=== PATIENT | female | born 1955 | race Caucasian/White ===

== ENCOUNTER 2016-09-26 09:11 | Day surgery (SDC) | payer OTHER ==
--- NOTE | 2016-09-25 19:23 | HISTORY AND PHYSICAL ---
ADMITTED: 09/26/2016 HISTORY OF PRESENT ILLNESS: The patient is a pleasant 60-year-old female with the chief complaint of a painful fourth toe, left foot. I carried out unsuccessfully an arthroplasty 05/09/2016. Toe continues to contract and it is painful. States she would like to have it corrected. MEDICAL/SURGICAL HISTORY: Past medical history: Includes a history of bleeding disorders, arthritis, varicose veins, hypertension and anxiety. Surgical history: Multiple foot surgeries on the left, right breast reduction and a knee surgery. MEDICATIONS: 1. Pravastatin 10 mg 1 by mouth daily. 2. Trazodone 50 mg 1 by mouth daily. 3. Lisinopril 20 mg 1 by mouth daily. 4. Zoloft 75 mg tablet 1 by mouth daily. 5. Vitamin D 1 tablet daily. 6. Albuterol inhaler as needed. ALLERGIES: 1. REPORTS NO DRUG OR FOOD ALLERGIES. SOCIAL HISTORY: She is . Retired nurse. Does not smoke or drink. FAMILY HISTORY: Noncontributory to chief complaint. REVIEW OF SYSTEMS: Ten-point review of systems positive for hypertension and some unknown bleeding disorder. PHYSICAL EXAMINATION: GENERAL: The patient is alert, oriented x3. HEENT: PERRLA. Normocephalic. HEART: Regular rate and rhythm, S1, S2. No gallops or murmurs. LUNGS: Respiration clear to auscultation. No wheezing, rhonchi, rales or rubs. ABDOMEN: Soft, tender, nondistended. Normal tones, no palpable masses. EXTREMITIES: Lower extremities/Vascular: DP and PT pulses are palpable. Previous linear incisions have healed. The fourth toe is contracted, both at the DIP and PIPJ, both the sagittal and transverse planes. LAB/IMAGING: Imaging is consistent with clinical findings with contracture in the sagittal and transverse planes of the fourth toe at the DIP and PIPJ, respectively. IMPRESSION: 1. Recalcitrant hammertoe deformity, fourth toe, left foot. PLAN: The patient is scheduled for an outpatient procedure consisting of an arthrodesis of the fourth toe, left foot, utilizing a headless compression screw. There are no contraindications to surgery. Surgery is scheduled at [facility] on 09/26/2016.
[~2016-09-26 09:11] MED LIST: ALBUTEROL HFA60 DOSE IN; CALCIUM MAGNESIUM PO; DIAZEPAM5 MG PO; GARCINIA CAMBOGIA PO; IBUPROFEN400 MG PO; LISINOPRIL/HYDR1 TA1 PO; LISINOPRIL10 MG PO; MIRAPEX0.25 MG PO; MULTIPLE VITAMIN PO; NORCO1 TA1 PO; OMEPRAZOLE40 MG PO; PERCOCET1 TA4 PO; PHENERGAN EQUIV25 MG PO; PRAVASTATIN SOD10 MG PO; QVAR40 MCG IN; QVAR80 MCG IN; TRAZODONE HCL50 MG PO; TYLENOL/CODEINE #3 PO; VITAMIN C500 M1 PO; VITAMIN D-31000 UNIT PO; ZOFRAN4 MG PO; ZOLOFT50 MG PO
[2016-09-26] MEDS ORDERED: ABILIFY5 MG PO (09:38)
[2016-09-26] MEDS ORDERED: CYCLOBENZAPRINE10 MG PO (09:38)
[2016-09-26] MEDS ORDERED: ACETAMINOPHEN/C1 TA3 PO (12:45)
--- NOTE | 2016-09-26 12:47 | Provider's Discharge Care Plan ---
Problem, Goal, Plan Problem List 1. Other hammer toe(s) (acquired), unspecified foot Goals: Improve function Instructions: Follow up as directed
--- NOTE | 2016-09-26 12:47 | Provider's Discharge Care Plan ---
Problem, Goal, Plan Problem List 1. Other hammer toe(s) (acquired), unspecified foot Goals: Improve function Instructions: Follow up as directed
--- NOTE | 2016-09-26 19:31 | OPERATIVE REPORT ---
DATE OF SURGERY: 09/26/2016 SURGEON: Juan Blanco DPM PREOPERATIVE DIAGNOSIS: 1. Hammertoe deformity, fourth digit, left foot POSTOPERATIVE DIAGNOSIS: 1. Hammertoe deformity, fourth digit, left foot PROCEDURE PERFORMED: 1. Arthrodesis, fourth digit, left foot ANESTHESIA: LMA. HEMOSTASIS: Achieved by tourniquet, 250 mmHg pressure. TOURNIQUET TIME: Total tourniquet time: Forty minutes. MATERIALS: 3-0 Polysorb, one Trilliant 2.0 compression screw, 24 mm in length, 4 -0 Surgipro. INJECTABLES: Injected 10 mL of 0.5% bupivacaine plain. COMPLICATIONS: None. CONDITION: The patient tolerated anesthesia, procedure well. INDICATIONS: The patient is a pleasant 60-year-old female with reoccurring hammertoe deformities of fourth digit, left foot. She has previously had it corrected; however, it did not withstand shoe pressure and became more symptomatic and painful, became irritated, states she would like to have it fused. Previous procedure I carried out was an arthroplasty in an attempt to allow motion and movement; however, the toe became more painful, stiff and she would like to have it surgically corrected. There are no contraindications to surgery at this time. SURGICAL TECHNIQUE: The patient was brought to the operating room, placed on operating table in a supine position. At this time, a general anesthetic was administered. Pneumatic tourniquet was then placed above the left ankle. Left lower extremity was prepped and draped in a normal sterile fashion. Intraoperative pause carried out for positive identification, proper limb, consent form verified and confirmed, as well as confirmation of 2 g of IV cefazolin. At this time, an Esmarch bandage was then utilized to exsanguinate the limb, tourniquet was then inflated. Attention was directed to procedure 1. Arthrodesis, fourth digit, left foot: An incision was placed on the dorsum of the fourth toe extending proximal to the proximal interphalangeal joint and extending distally across the distal interphalangeal joint. Long extensor tendon was then transected just proximal to the distal interphalangeal joint and reflected back proximal to the PIPJ. There was noted fibrinous tissue between the base of the distal phalanx, as well as in the head of the remnants of the intermediate phalanx. It was freshened with a sagittal saw to good subchondral bone. A curette was utilized to remove articulating surface from the base of the distal phalanx. The proximal phalanx head was then excised via sagittal saw, as well. A guidewire was then driven from proximal to distal out the distal phalanx, verified under fluoroscopy for proper placement in the sagittal and transverse planes and then retrograded across the remnants of the intermediate and proximal phalanx, ensured to be seen centrally in both the intermediate and proximal phalanx. A corresponding drill at 1.7 was then utilized. A 24 mm 2.0 compression screw was then placed across, again verified under fluoroscopy for proper placement and excellent positioning. The area was flushed. The long extensor tendon was reapproximated at the DIPJ level with 3-0 Polysorb in a [id number] fashion. Skin edge was then reapproximated with running Surgipro. It should be noted that a linear incision was made at the tip of the digit to allow access and placement of the screw, which was then closed with 4-0 Surgipro. The area was locally anesthetized with the aforementioned local anesthetic. The tourniquet was released with a reactive hyperemia and good digital perfusion. The patient tolerated procedure and anesthetic well, left the operating room with vital signs stable. While in recovery, written instructions for weightbearing to tolerance, prescription for acetaminophen with Tylenol 300 mg for Tylenol No. 3 was dispensed. Prognosis is guarded. She will be discharged home in stable condition.
== END 2016-09-26 14:56 | disposition home or self-care (01) ==
LOC: OR SRH 09:11 → SCU SRH 09:16
PROVIDERS: Podiatrist
PROC: 0SGQ04Z Fusion of Left Toe Phalangeal Joint with Internal Fixation Device, Open Approach (ICD-10-PCS; principal; 2016-09-26 11:30)
DX: M20.42 Other hammer toe(s) (acquired), left foot (principal); I10 Essential (primary) hypertension
CPT/HCPCS: 29240; 50002; 60001; 70002; 80461; 80575; 81239; 81267; 83168; 83414; 84038; 84522; 85630; 90074; 90100; 95059